=== PATIENT | female | born 1995 | race Caucasian/White ===

== ENCOUNTER 2017-02-12 16:54 | Emergency (ER) | payer BC, OTHER ==
[2017-02-12 17:18] LABS: Hematocrit 40.8 % (37.0-47.0); Hemoglobin 13.9 gm/dL (12.5-16.0); Mean Cell Volume 83.1 fl (78-100); Mean Corpuscular Hemoglobin 28.3 pg (27-31); Mean Corpuscular Hgb Conc 34.1 g/dl (32-36); Mean Platelet Volume 8.9 fl (6.0-9.5); Neutrophil # 7.1 K/mm3 (1.3-6.0); Neutrophil % 77.1 % (42-75.0); Platelet Count 374 K/mm3 (150-450); Red Blood Count 4.91 M/mm3 (4.2-5.4); Red Cell Distribution Width 11.8 % (11.5-14.0); White Blood Count 9.3 K/mm3 (4.0-10.5)
[2017-02-12 17:26] LABS: Urine Appearance Slightly Cloudy; Urine Bilirubin Negative (NEGATIVE); Urine Blood 10 /ul (NEGATIVE); Urine Color Yellow; Urine Ketone Negative (NEGATIVE); Urine Protein Negative (NEGATIVE); Urine Specific Gravity 1.025 SP.GR. (1.005-1.010); Urine Urobilinogen Normal (NORMAL)
[2017-02-12 17:27] LABS: Urine Nitrite Negative (NEGATIVE)
[2017-02-12 17:32] LABS: Anion Gap 14.7 mmol/L (6.8-13.8); BUN/Creatinine Ratio 9.9 (9.0-21.6); Bilirubin, Total 0.3 mg/dL (0.0-1.1); Ca. Corrected For Albumin 9.3 mg/dL (8.4-10.2); Calcium * 9.6 mg/dL (7.9-10.9); Carbon Dioxide 25.7 mmol/L (24-32.6); Potassium 3.4 mmol/L (3.4-4.6); Total Protein 8.8 gm/dL (6.2-8.2); Urine WBC 0-5 /hpf (0-5)
[2017-02-12 17:33] LABS: Urine Bacteria 1+; Urine RBC 0-5 /hpf (0-5)
[2017-02-12] MEDS ORDERED: LIDOCAINE HCL 20 ML UDC PO ONE (18:24)
[2017-02-12] MEDS ORDERED: MAG HYDROX/ALUMINUM HYD/SIMETH 30 ML UDC PO ONE (18:24)
[2017-02-12] MEDS ORDERED: ONDANSETRON 4 MG TAB.RAPDIS PO ONE ×2 (18:35→19:38)
[2017-02-12] MEDS ORDERED: ONDANSETRON 4 MG TAB.RAPDIS ONE ×2 (18:36→19:40)
--- NOTE | 2017-02-12 18:49 | ERNOTE ---
Abdominal HPI - Narrative Date of Service: 02/12/17 - General Chief Complaint: Abdominal Pain Time Seen by Provider: 02/12/17 18:23 Source: patient Exam Limitations: no limitations - Immun/Allergies/Home Medications Allergies/Adverse Reactions: Allergies No Known Allergies Allergy (Unverified 02/12/17 17:03) Home Medications: HOME MEDICATIONS Dicyclomine HCl [Bentyl] 10 mg PO TID #30 tab 02/12/17 [Last Taken Unknown] Levothyroxine Sodium [Synthroid] 25 mcg PO DAILY 02/12/17 [Last Taken Unknown] - History of Present Illness Narrative: Pt. comes in with c/o BUQ abd pain for 2 days. Pt. states that she has had intermittent nausea and diarrhea since onset of symptoms. Pt. denies any recent illness, fever, SOB, CP, back pain , alleviating factors, aggravating factors, or prehospital treatment. Review of Systems - Review of Systems Constitutional: Present: no symptoms reported. Absent: recent illness, fever, chills, weakness, fatigue, malaise EYE: Present: no symptoms reported ENT: Present: no symptoms reported Respiratory: Present: no symptoms reported. Absent: shortness of breath, cough , wheezing Cardiology: Present: no symptoms reported. Absent: chest pain, palpitations, edema Gastrointestinal/Abdominal: Present: no symptoms reported. Absent: nausea, vomiting, diarrhea, abdominal pain Genitourinary: Present: no symptoms reported Musculoskeletal: Present: no symptoms reported. Absent: back pain, joint pain Skin: Present: no symptoms reported. Absent: rash, change in color Neurological: Present: no symptoms reported. Absent: headache, dizziness/light- headedness, numbness, tingling Endocrine: Present: no symptoms reported All Other Systems: All systems neg except as marked - Patient's Past Medical History Patient History - Medical: Hypothyroidism, Migraines Patient History - Cardiac/Respiratory: No pertinent hx Patient History - Cancer: No Hx of Cancer Patient History - Surgical Procedures: No surgical history Patient History - Other: None - Social History Living Situations: home Psych History: No pertinent hx Alcohol Use: none Drug Use: none Physical Exam - Physical Exam General Appearance: Present: wd/wn, alert, no apparent distress Eye Exam: Normal inspection: bilateral, PERRL: bilateral, EOMI: bilateral Ears, Nose, Throat: Present: normal ENT inspection, normal pharynx Neck: Present: normal inspection, nontender. Absent: lymphadenopathy (R), lymphadenopathy (L) Respiratory: Present: no respiratory distress, normal breath sounds, no accessory muscle use, chest nontender, lungs clear Cardiovascular/Chest: Present: regular rate, rhythm, no murmur, normal peripheral pulses Gastrointestinal/Abdominal: Present: normal bowel sounds, nondistended, soft, no organomegaly, tenderness - LUQ Back Exam: Present: normal inspection, normal range of motion, no CVA tenderness , no vertebral tenderness Extremity Exam: Present: normal inspection, non-tender, normal range of motion, no edema Neurological Exam: Present: alert, oriented, normal mood/affect, no motor/ sensory deficits Skin Exam: Present: normal color, warm/dry. Absent: pallor, skin rash ED Progress - Results and Orders Patient's Lab Results:: I have reviewed the patient's lab results. - Vital Signs Patient's Vital Signs:: I have reviewed the patient's vital signs. Vital Signs: Vital Signs 02/12/17 16:58 Temperature 36.8 C Pulse Rate 123 H Respiratory 14 Rate Blood Pressure 140/100 O2 Sat by Pulse 97 Oximetry - Progress/Reassessment Chief Complaint: Abdominal Pain Progress:: Improved Departure - Departure Clinical Impression: Gastroenteritis Disposition: Home self-care Condition: Good Instructions: Viral Gastroenteritis, Adult, [id number], Diarrhea, Adult, Easy -to-Read Additional Instructions: Please increase fluid intake and follow up with primary provider if not improved in 2-3 days. Referrals: Klarissa Hickman MD [Primary Care Provider] - Prescriptions: Dicyclomine HCl [Bentyl] 10 mg PO TID #30 tab
[2017-02-12] MEDS ORDERED: DICYCLOMINE HCL 10 MG CAPSULE PO ONE (19:34)
[2017-02-12] MEDS ORDERED: DICYCLOMINE HCL 20 MG TABLET ONE (19:36)
[2017-02-12] MEDS ORDERED: DICYCLOMINE HCL 10 MG CAPSULE ONE (19:38)
[2017-02-12 19:49] VITALS: BP 150/84
== END 2017-02-12 19:48 | disposition home or self-care (01) ==
LOC: ER 16:54
DX: A08.4 Viral intestinal infection, unspecified (principal); E03.9 Hypothyroidism, unspecified